=== PATIENT | female | born 1980 | race Caucasian/White ===

== ENCOUNTER 2025-06-27 14:54 | Emergency (ER) | payer OTHER, SELFPAY ==
--- NOTE | ~2025-06-27 | XR_ITS ---
CLINICAL HISTORY: pain 2 view left knee Comparison: None provided Findings: Bones intact. No dislocations. No significant loss of joint space, osteophytes, or erosions. No joint effusion. No radiopaque foreign body. IMPRESSION: 1. No acute findings. This document has been electronically signed by: Disha Vaca MD on 06/27/2025 18:10:48
--- NOTE | ~2025-06-27 | XR_ITS ---
CLINICAL HISTORY: trauma 2 view right tibia-fibula Comparison: None provided Findings No fractures or dislocations. No joint effusion. No significant arthritic change. No radiopaque foreign body. IMPRESSION: No acute findings This document has been electronically signed by: Disha Vaca MD on 06/27/2025 18:13:48
--- NOTE | ~2025-06-27 | XR_ITS ---
CLINICAL HISTORY: trauma 2 view left tibia-fibula Comparison: None provided Findings No fractures or dislocations. No joint effusion. No significant arthritic change. No radiopaque foreign body. IMPRESSION: No acute findings. This document has been electronically signed by: Disha Vaca MD on 06/27/2025 18:12:01
[2025-06-27 15:11] VITALS: BP 144/92
[2025-06-27 15:14] VITALS: BP 115/62; PULSE 85; RESP 16; TEMP 36.9; O2SAT 100; BMI 34.5
--- NOTE | 2025-06-27 16:01 | PC.NURSE ---
Spoke with Dr. Jaimes regarding this patient. Inquired about appropriate imaging for this patient. Provider wishes to evaluate the patient prior to deciding while xrays/imaging to perform. Patient aware of plan. Awaiting ED provider to sign-up for this patient. Patient is alert/oriented, calm/cooperative, states I don't really have pain, more of a 'burning sensation', rating 5 out of 10 at this time. Was able to ambulate on site. Care ongoing by this RN.
[2025-06-27 16:16] VITALS: BP 111/63; PULSE 79; RESP 18; O2SAT 100
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
[2025-06-27] MEDS: HYDROcodone Bit/Acetam 5/325 TABLET 1 TAB PO (18:55)
[2025-06-27 19:04] VITALS: BP 115/66; PULSE 76; RESP 16; TEMP 36.6; O2SAT 96
--- NOTE | 2025-06-27 19:33 | PC.NURSE ---
Assumed care of pt at 1933, report received from PAM White.
--- OUTSIDE RECORDS SUMMARY | 2025-06-27 19:44 | XMS_ITS | Clinical Summary ---
Author Organization [facility] Address [address] [place] [address] Phone Care Team Providers Care Basic Combatant Swimmer Name Role Phone Physician, No Pcp Primary Care Provider Unavaila ble Allergies Active Allergy Reactions Criticality Noted Date Comments Fish Containing Products 04/09/2014 Latex 09/03/2022 hives Penicillins 04/09/2014 Medications albuterol HFA (PROAIR HFA ; PROVENTIL HFA ; VENTOLIN HFA) 90 mcg/actuation inhaler Inhale 2 puffs by mouth Every 4 hours as needed. 10/06/2022 Active Medical History Medical History Date Comments Asthma Social History Tobacco Use Types Packs/Day Years Used Date Smoking Tobacco: Every Day Cigarettes Tobacco Cessation:Ready to Q uit: Not Asked; Counseling Given: Not Answered Comments Unknown Sex and Gender Information Value Date Recorded Sex Assigned at Not on file Legal Sex Female 7:31 PM EST Gender Identity Not on file Sexual Orientation Not on file Obstetrics History Last Filed Vital Signs Vital Sign Reading Time Taken Comments Blood Pressure 115/73 08/15/2024 12:17 AM EST Pulse 86 08/15/2024 12:17 AM EST Temperature 36.5 C (97.7 F) 08/15/2024 12:17 AM EST Respiratory Rate 18 08/15/2024 12:17 AM EST Oxygen Saturation 100% 08/15/2024 12:17 AM EST Inhaled Oxygen Concentration - - Weight 77.1 kg (170 lb) 08/14/2024 8:24 PM EST Height 154.9 cm (5' 1 ) 08/14/2024 8:24 PM EST Body Mass Index 32.12 08/14/2024 8:24 PM EST Plan of Treatment Health Maintenance Due Date Last Done Comments Breast Cancer Screening 1982 DTaP,Tdap,and Td Vaccines (1 - Tdap) 2001 Pneumococcal Vaccine: Pediatrics (0 to 5 Years) and At-Risk Patients (6 to 49 Years) (1 of 2 - PCV) 2001 Cervical Cancer Screening: Pap Smear 2003 HIV Screening 09/04/2022 Social Influencers of Health Screening 09/04/2022 Depression Screening 10/03/2024 COVID-19 Vaccine ( season) 2025 07/22/2023, 09/03/2022, 07/14/2021, Additional history exists Influenza Vaccine (#1) 2025 Cholesterol Screening (Lipid Panel) 09/06/2027 09/06/2022, 09/06/2022 RSV Immunization Adult Patients (1 - 1-dose 75+ series) 2057 Hepatitis C Screening Completed 09/06/2022 Hepatitis B Vaccines Completed 10/05/2022, 09/03/20 22 HIB Vaccines Aged Out No longer eligi ble based on patient's age to complete this topic HPV Vaccines Aged Out No longer eligi ble based on patient's age to complete this topic Hepatitis A Vaccines Aged Out No long er eligible based on patient's age to complete this topic IPV Vaccines Aged Out No longer eligi ble based on patient's age to complete this topic MMR Vaccines Aged Out No longer eligi ble based on patient's age to complete this topic Meningococcal ACWY Vaccine Aged Out N o longer eligible based on patient's age to complete this topic Meningococcal B Vaccine Aged Out No l onger eligible based on patient's age to complete this topic RSV Immunization Patients Under 20 months Aged Out No longer eligible based on patient's age to complete this topic Varicella Vaccines Aged Out No longer eligible based on patient's age to complete this topic Insurance [facility] Care Teams Basic Combatant Swimmer Relationship Specialty Start Date End Date Physician, No Pcp PCP - General 08/15/24
--- OUTSIDE RECORDS SUMMARY | 2025-06-27 19:44 | XMS_ITS | Clinical Summary ---
Author Organization [facility] Address [address] [place] [address] Care Team Providers Care Community Health Nurse Staff Name Role Phone Jesus Sanchez MD Primary Care Provider [phone] Source Comments PLEASE NOTE, if this patient is a minor, it may be UNLAWFUL to discuss sensitive information that is contained in these records (such as FAMILY PLANNING, MENTAL HEALTH or SUBSTANCE ABUSE) with the minor patient's parent or other person without the patient's specific authorization.LINDA Allergies Active Allergy Reactions Criticality Noted Date Comments Fish 04/09/2014 Latex 09/03/2022 hives Penicillins 04/09/2014 Medications albuterol HFA 90 mcg/actuation inhalerIndication s:Mild intermittent asthma in adult without complication ([facility]) Inhale 2 Puffs into the lungs every 4 (four) hours as needed for shortness of breath or wheezing 18 g 3 Active budesonide-formot Alejandra (SYMBICORT) 80-4.5 mcg/actuation inhalerIndication s:Mild intermittent asthma in adult without complication ([facility]) Inhale 2 Puffs into the lungs 2 (two) times daily 10.2 g 1 3 Active ibuprofen 400 mg tabletIndications :Costochondritis Take 1 Tablet by mouth 3 (three) times daily as needed for pain 90 Tablet 3 Active nicotine polacrilex (COMMIT) 4 mg lozengeIndication s:Tobacco use disorder Use one by mouth every 2 hours as needed for smoking cessation 72 Lozenge 5 3 Active nicotine (NICODERM, STEP 3) 7 mg/24 hr patchIndications: Tobacco use disorder Place 1 Patch onto the skin once daily (every 24 hours) 14 Patch 3 Active nicotine (NICODERM, STEP 2) 14 mg/24 hr patchIndications: Tobacco use disorder Place 1 Patch onto the skin once daily (every 24 hours) 14 Patch 3 Active nicotine (NICODERM, STEP 1) 21 mg/24 hr patchIndications: Tobacco use disorder Place 1 Patch onto the skin once daily (every 24 hours) 42 Patch 3 Active Active Problems Problem Noted Date Diagnosed Date Trichomonas vaginalis (TV) infection 07/24/2023 Overview (07/24/2023): Possibly multiple infections. Most recently 07/24/2023: tx sent ANGIE in 10/2022 Tobacco use disorder 07/22/2023 Overview (07/22/2023): Smoking 1ppd for 13 years Pt tried NRT gum (still had cravings) and Chantix (bad mood) Food insecurity 07/22/2023 Class 1 obesity due to exces s calories without serious comorbidity with body mass index (BMI) of 30.0 to 30.9 in adult 09/04/2022 Chronic right shoulder pain 10/27/2018 Overview (09/15/2019): 09/28/18 - seen by [facility] for R shoulder pain. Majority of pain coming from underlying arthropathy and impingement of the right shoulder. R shoulder steroid injection given. 02/18/19 - seen at [facility] c/o b/l shoulder pain. Dx: shoulder sprain. Tx: Tramadol 50 mg #20 and Naprosyn. F/U [facility]. Alopecia areata 03/13/2018 Asthma in adult ([facility]) 04/09/2014 Migraine headache 04/09/2014 Overview (2018): 06/18/18 - [facility] c/o migraine SCHMIDT x 1 day. Dx: acute SCHMIDT. Tx: Fioricet, Zoframinta. Anxiety and depression 04/09/2014 Immunizations Immunization Administration Dates Next Due Hep B,adult,adjuvanted (HEPLISAV) 10/05/2022,11/2021 Pfizer COVID-19 (Comirnaty), Mrna, Lnp-s, Pf, Erik-sucrose, 30 Mcg/0.3 Ml, 12yr+ 07/22/2023 Pfizer-BioNTech COVID-19 Vac cine Bivalent, (SOMERS PFIZER-BIONTECH COVID-19 VACCINE BIVALENT, (SOMERS CAP 09/03/2022 Family History Medical History Relation Name Comments Hypertension Father No Known Problems Mother Heart attack Paternal Grandfather Stroke Paternal Grandfather Cancer Paternal Grandmother Colon Cancer Paternal Uncle Lupus Sister Relation Name Status Comments Father Mother Paternal Grandfather Paternal Grandmother Paternal Uncle Sister Alive Social History Tobacco Use Types Packs/Day Years Used Date Smoking Tobacco: Every Day Cigarettes 1 13 Smokeless Tobacco: Never Tobacco Cessation:Ready to Q uit: Not Asked; Counseling Given: Not Answered Alcohol Use Standard Drinks/Week Comments Not Currently 0 (1 standard drink = 0.6 oz pur e alcohol) occ Social Connections Answer Date Recorded Connectedness 0 07/22/2023 Financial Resource Strain Answer Date R ecorded Financial Resource Strain 0 2022 Stress Answer Date Recorded Stress 0 07/22/2023 Physical Activity Answer Date Recorded Physical Activity 0 05/26/2019 Food Insecurity Answer Date Recorded Food 0 07/22/2023 Transportation Needs Answer Date Record ed Transportation 0 07/22/2023 Housing Stability Answer Date Recorded Housing 0 07/22/2023 Safety and Environment Answer Date Kwame rded Safety 0 07/22/2023 Utilities Answer Date Recorded Utilities 0 07/22/2023 Employment Answer Date Recorded Employment 0 05/26/2019 Comments No Sex and Gender Information Value Date Recorded Sex Assigned at Female 09/22/2017 7:33 AM PST Legal Sex Female 11:36 AM PDT Gender Identity Female 09/22/2017 7:33 AM PST Sexual Orientation Straight 09/22/2017 7: 33 AM PST Last Filed Vital Signs Vital Sign Reading Time Taken Comments Blood Pressure 100/76 09/06/2023 11:12 AM EST Pulse 78 09/06/2023 11:12 AM EST Temperature 36.8 C (98.2 F) 09/06/2023 11:12 AM EST Respiratory Rate 18 09/06/2023 11:12 AM EST Oxygen Saturation 97% 07/22/2023 1:27 PM EDT Inhaled Oxygen Concentration - - Weight 73.7 kg (162 lb 6.4 oz) 09/06/2023 11:12 AM EST Height 154.9 cm (5' 1 ) 10/06/2022 11:21 AM EST Body Mass Index 30.69 10/06/2022 11:21 AM EST Plan of Treatment Health Maintenance Due Date Last Done Comments Anxiety Screening 1982 HPV Screening 1982 Imm-DTaP/Tdap/Td (1 - Tdap) 2001 Imm-Pneumococcal (1 of 2 - PCV) 2001 Imm-HPV (1 - 3-dose SCDM series) 2009 Breast Cancer Screening (Mammogram) 2022 Tobacco Screening 09/03/2023 09/03/2022 Depression Monitoring 10/22/2023 07/22/2023, Tobacco Cessation Counseling (#1) 07/21/2024 Relationship Safety Screening/Counseling 07/22/2024 07/22/2023, 09/03/2022 Hypertension Screening (#1) 09/05/2024 Annual Wellness (Adult): Indicated (All Coverage) 09/06/2024 09/06/2023, 09/03/2022, 03/16/2017 Alcohol and Drug Screen 10/03/2024 10/06/19 23, 09/03/2022, 10/27/2018, Additional history exists [id number] ( season) 2025 07/22/2023, 09/03/2022, 07/14/2021, Additional history exists Diabetes Screening 09/06/2025 09/06/2022, 1 11/07/2021, 03/16/2017 Pap Smear 09/06/2026 09/06/2023 Lipid Screening 09/06/2027 09/06/2022, 03/16/2017 Cervical Cancer Screening 09/06/2028 Pap + HPV 09/06/2028 HIV Screening Completed 09/06/2022 Hepatitis C Screening Completed 09/06/2022 Imm-Hepatitis B Completed 10/05/2022, 09/03/2022 Cervical Ablation/Cold-Knife Conization Discontinued Cervical Cryotherapy Discontinued Colposcopy Discontinued Endometrial Biopsy Discontinued Excision/Leep Discontinued HPV Genotyping Discontinued Imm-Influenza Discontinued Vaginal Pap Discontinued Vulvoscopy Discontinued Procedures Procedure Name Priority Date/Time Associated Diagnosis Comments THINPREP IMAGING PAP REFLEX HPV MRNA E6/E7, CT/GT (Q) Routine 09/06/2023 11:35 AM EST Encounter for Papanicolaou smear of vagina as part of routine gynecological examination Encounter for screening for human papillomavirus (HPV) HIV 1/2 AG & AB W/RFLX (4TH GEN) Routine 09/06/2022 9:12 AM EST Routine general medical examination at a health care facility Mild intermittent asthma in adult without complication Migraine without status migrainosus, not intractable, unspecified migraine type Anxiety and depression Class 1 obesity due to excess calories without serious comorbidity with body mass index (BMI) of 30.0 to 30.9 in adult HEPATITIS C AB W/RFLX HCV RNA, QT, RT PCR Routine 09/06/2022 9:12 AM EST Routine general medical examination at a health care facility Mild intermittent asthma in adult without complication Migraine without status migrainosus, not intractable, unspecified migraine type Anxiety and depression Class 1 obesity due to excess calories without serious comorbidity with body mass index (BMI) of 30.0 to 30.9 in adult HEMOGLOBIN GLYCOSYLATED A1C Routine 09/06/2022 9:12 AM EST Routine general medical examination at a health care facility Mild intermittent asthma in adult without complication Migraine without status migrainosus, not intractable, unspecified migraine type Anxiety and depression Class 1 obesity due to excess calories without serious comorbidity with body mass index (BMI) of 30.0 to 30.9 in adult LIPID PANEL Routine 09/06/2022 9:12 AM EST Routine general medical examination at a health care facility Mild intermittent asthma in adult without complication Migraine without status migrainosus, not intractable, unspecified migraine type Anxiety and depression Class 1 obesity due to excess calories without serious comorbidity with body mass index (BMI) of 30.0 to 30.9 in adult from Last 3 Months or Most Recently Relevant to Health Maintenance Results * THINPREP IMAGING PAP REFLEX HPV MRNA E6/E7, CT/GT (Q) (09/06/2023 11:35 AM EST) CHLAMYDIA TRACHOMATIS RNA, TMA NOT DETECTED NOT DETECTED [facility] NEISSERIA GONORRHOEAE RNA, TMA NOT DETECTED NOT DETECTED [facility] COMMENT [facility] Nethub [facility] CLINICAL INFORMATION See Note [facility] Comment:Routine exam LMP See Note [facility] Comment:[id number] PREV. PAP See Note [facility] Comment:NONE GIVEN PREV. BX See Note [facility] Comment:NONE GIVEN SOURCE See Note [facility] Comment:Cervix STATEMENT OF ADEQUACY See Note [facility] Comment: Satisfactory for evaluation. Endocervical/transformation zone component present. INTERPRETATION/RESU LT See Note [facility] Comment: Cytology Results: Negative for intraepithelial lesion or malignancy. COMMENT See Note [facility] Comment: This Pap test has been evaluated with computer assisted technology. BRAND ENGINEER See Note [facility] Comment: CMB, CT(ASCP) CT Screening Location: [employer] [facility], [address] [place] [address] Slide preparation performed at: [facility], [address] [place] [id number] CLIA No. [id number] COMMENT [facility] Swab Cervix uteri structure / Unknown 09/06/2023 11:35 AM EST 09/07/2023 9:17 PM EST Narrative [employer] [facility] - 09/13/2023 8:20 AM EST EXPLANATORY NOTE: The Pap is a screening test for cervical cancer. It is not a diagnostic test and is subject to false negative and false positive results. It is most reliable when a satisfactory sample, regularly obtained, is submitted with relevant clinical findings and history, and when the Pap result is evaluated along with historic and current clinical information. The analytical performance characteristics of this assay, when used to test SurePath(TM) specimens have been determined by [facility]. The modifications have not been cleared or approved by the FDA. This assay has been validated pursuant to the CLIA regulations and is used for clinical purposes. For additional information, please refer to https://education.[employer]/faq/TFB884 (This link is being provided for information/ educational purposes only.) us Jesus Sanchez MD LAB - PATHOLOGY AND CYTOLOGY AMB ULATORY Final Result Performing Organization Address [facility]/ZIP Co de Phone Number M[facility] [address] [address], [place] [address] [address] [address] * HEPATITIS C AB W/RFLX HCV RNA, QT, RT PCR (09/06/2022 9:12 AM EST) HEPATITIS C ANTIBODY NON-REACT MARIBETH NON-REACT MARIBETH [facility] SIGNAL TO CUT-OFF 0.07 <1.00 M[facility] Comment: HCV antibody was non-reactive. There is no laboratory evidence of HCV infection. In most cases, no further action is required. However, if recent HCV exposure is suspected, a test for HCV RNA (test code 00501) is suggested. For additional information please refer to http://education.[employer]/faq/WXX76n6 (This link is being provided for informational/ educational purposes only.) Blood Blood / Unknown 09/06/2022 9 :12 AM EST 09/06/2022 9:13 AM EST Dilcia Abernathy ROLL UP MACHINE OPERATOR-C LAB - BLOOD DRAW Edited Result - Final Performing Organization Address [facility]/ZIP Co de Phone Number M[facility] [address] [address], [place] [address] [address] * HIV 1/2 AG & AB W/RFLX (4TH GEN) (09/06/2022 9:12 AM EST) HIV AG/AB, 4TH GEN NON-REAC TIVE NON-REAC TIVE [facility] Comment: HIV-1 antigen and HIV-1/HIV-2 antibodies were not detected. There is no laboratory evidence of HIV infection. PLEASE NOTE: This information has been disclosed to you from records whose confidentiality may be protected by state law. If your state requires such protection, then the state law prohibits you from making any further disclosure of the information without the specific written consent of the person to whom it pertains, or as otherwise permitted by law. A general authorization for the release of medical or other information is NOT sufficient for this purpose. For additional information please refer to http://education.[employer]/faq/GPI985 (This link is being provided for informational/ educational purposes only.) The performance of this assay has not been clinically validated in patients less than 2 years old. Blood Blood / Unknown 09/06/2022 9 :12 AM EST 09/06/2022 9:13 AM EST us Dilcia SARABIA-C LAB - BLOOD DRAW Final R esult Performing Organization Address [facility]/ZIP Co de Phone Number [employer] [address] [address], [place] [address],[facility] [place] [address] * HEMOGLOBIN, GLYCOSYLATED (A1C) (09/06/2022 9:12 AM EST) HEMOGLOBIN A1C 4.6 <5.7 % of total Hgb [facility] Comment: For the purpose of screening for the presence of diabetes: <5.7% Consistent with the absence of diabetes 5.7-6.4% Consistent with increased risk for diabetes (prediabetes) > or =6.5% Consistent with diabetes This assay result is consistent with a decreased risk of diabetes. Currently, no consensus exists regarding use of hemoglobin A1c for diagnosis of diabetes in children. According to [place] [employer] (ADA) guidelines, hemoglobin A1c <7.0% represents optimal control in non- diabetic patients. Different metrics may apply to specific patient populations. Standards of Medical Care in Diabetes(ADA). Blood Blood / Unknown 09/06/2022 9 :12 AM EST 09/06/2022 9:13 AM EST us Dilcia SARABIA-C LAB - BLOOD DRAW Edited Result - Final Performing Organization Address City/[facility]/ZIP Co de Phone Number [employer] [address] [address], [employer] [address],[facility] [place] [address] * (ABNORMAL) LIPID PANEL (09/06/2022 9:12 AM EST) CHOLESTEROL, TOTAL 157 <200 mg/dL [facility] HDL CHOLESTEROL 44(L) > OR = 50 mg/dL [facility] TRIGLYCERIDES 83 <150 mg/dL [facility] LDL-CHOLESTEROL 96 99 mg/dL (calc) [facility] Comment: Reference range: <100 Desirable range <100 mg/dL for primary prevention; <70 mg/dL for patients with CHD or diabetic patients with > or = 2 CHD risk factors. LDL-C is now calculated using the Major calculation, which is a validated novel method providing better accuracy than the Friedewald equation in the estimation of LDL-C. Darrell DOBSON et al. TRISTA. 2013;310(19): 1300-0581 (http://education.[employer]/faq/AFJ263) CHOL/HDLC RATIO 3.6 <5.0 (calc) [facility] NON-HDL CHOLESTEROL 113 <130 mg/dL (calc) [facility] Comment: For patients with diabetes plus 1 major ASCVD risk factor, treating to a non-HDL-C goal of <100 mg/dL (LDL-C of <70 mg/dL) is considered a therapeutic option. Blood Blood / Unknown 09/06/2022 9 :12 AM EST 09/06/2022 9:13 AM EST Dilcia Abernathy ROLL UP MACHINE OPERATOR-C LAB - BLOOD DRAW Final R esult [facility] [address] [address], [place] [facility] [address],[facility] [place] [address] from Last 3 Months or Most Recently Relevant to Health Maintenance Insurance [facility]) Member Subscriber Plan / Payer (Ef fective 2023-Present) Name:Rubi Santizo Relation to Subscriber:Self Name:Rubi Santizo Payer ID:[id number] Group ID:Not on file Type:[employer] Address: [address] [place] [address] Care Teams Community Health Nurse Staff Relationship Specialty Start Date End Date Jesus Sanchez MD [address] [place] [address] PCP - General Family Medicine, Physician 10/18/23
[2025-06-27 20:00] VITALS: BP 115/66; PULSE 76; RESP 16; TEMP 36.6; O2SAT 96
== END 2025-06-27 20:02 | disposition home or self-care (01) ==
PROVIDERS: Emergency Provider Emergency Medicine Emergency Medical Services
DX: S80.02XA Contusion of left knee, initial encounter (principal); S80.01XA Contusion of right knee, initial encounter; M25.562 Pain in left knee; M25.561 Pain in right knee; V47.5XXA Car driver injured in collision with fixed or stationary object in traffic accident, initial encounter; Y93.9 Activity, unspecified; Y92.410 Unspecified street and highway as the place of occurrence of the external cause; Y99.8 Other external cause status
CPT/HCPCS: 73560; 73590; 99283; 99284

== ENCOUNTER → 2025-06-27 17:15 | Outpatient (BNV) | payer OTHER, SELFPAY | PROVIDERS: Emergency Provider Emergency Medicine Emergency Medical Services; Visit Provider Nuclear Medicine | DX: M25.562 Pain in left knee (principal); M79.662 Pain in left lower leg; M79.661 Pain in right lower leg | CPT/HCPCS: 73560; 73590 ==